=== PATIENT | male | born 1930 | race Caucasian/White ===

== ENCOUNTER 2017-03-20 22:56 | Inpatient (IN) | payer MEDICARE, OTHER ==
[~2017-03-20] VITALS: Ht 182.9 cm; Wt 97.9 kg
[~2017-03-20 22:56] MED LIST: ASPI81TA22 PO; ATOR40TA16 PO; CALC250 PO; CLOP75TA PO; ENOX40IN SQ; FAMO20TA2 PO; HYDR-3288 PO; LISI2.5T3 PO; POLY17S PO; TAMS5CAP PO; THERH PO
[2017-03-20] MEDS: SODIUM CHLOR 0.9% 1000 ML INJ 1,000 ML IV SCH (23:53)
--- NOTE | 2017-03-20 23:53 | HHI.HP ---
HPI Service Critical Care Medicine Primary Care Physician Unknown Admission Diagnosis Diagnosis: Travel History International Travel<30 Days: No Contact w/Intl Traveler <30 Da: No Traveled to Known Affected Are: No History of Present Illness 86-year-old gentleman was a patient at the [facility] where he developed abdominal discomfort and ileus. He had a CT of the abdomen done that showed Large abdominal aortic aneurysm which measures 7.1 cm transverse by 5.0 cm AP by 7.9 cm sagittal. There is contrast within the mural thrombus suggestive of impending rupture. . The patient has known infrarenal 7 cm abdominal aortic aneurysm and apparently had this aneurysm for a while and a surgeon was consulted last month to see the patient in another hospital. At the time it was deemed to be non-leaking. The patient was transferred to SICU and was immediately evaluated by vascular surgeon contact center team lead Dr. Bishop with recommendation of a CTA of the thoracoabdominal aorta for further decisions about treatment plan. Review of Systems Constitutional: DENIES: Diaphoretic episodes, Fatigue, Fever, Weight gain, Weight loss, Chills, Dizziness, Change in appetite, Night Sweats Endocrine: DENIES: Heat/cold intolerance, Polydipsia, Polyuria, Polyphagia Eyes: DENIES: Blurred vision, Diplopia, Eye inflammation, Eye pain, Vision loss , Photosensitivity, Double Vision Ears, nose, mouth, throat: DENIES: Tinnitus, Hearing loss, Vertigo, Nasal discharge, Oral lesions, Throat pain, Hoarseness, Ear Pain, Running Nose, Epistaxis, Sinus Pain, Toothache, Odynophagia Respiratory: DENIES: Apneas, Cough, Snoring, Wheezing, Hemoptysis, Sputum production, Shortness of breath Cardiovascular: DENIES: Chest pain, Palpitations, Syncope, Dyspnea on Exertion , PND, Lower Extremity Edema, Orthopnea, Claudication Gastrointestinal: COMPLAINS OF: Abdominal pain, Nausea, Anorexia, DENIES: Black stools, Bloody stools, Constipation, Diarrhea, Vomiting, Difficulty Swallowing Genitourinary: DENIES: Sexual dysfunction, Urinary frequency, Urinary incontinence, Urgency, Hematuria, Dysuria, Nocturia, Penile Discharge, Testicular Pain, Testicular Swelling Musculoskeletal: DENIES: Joint pain, Muscle aches, Stiffness, Joint Swelling, Back pain, Neck pain Integumentary: DENIES: Abnormal pigmentation, Nail changes, Pruritus, Rash Hematologic/lymphatic: DENIES: Bruising, Lymphadenopathy Immunologic/allergic: DENIES: Eczema, Urticaria Neurologic: DENIES: Abnormal gait, Headache, Localized weakness, Paresthesias, Seizures, Speech Problems, Tremor, Poor Balance Psychiatric: DENIES: Anxiety, Confusion, Mood changes, Depression, Hallucinations, Agitation, Suicidal Ideation, Homicidal Ideation, Delusions Past Family Social History Allergies: Coded Allergies: Sulfa (Sulfonamide Antibiotics) (Verified Allergy, Severe, Hives, 03/19/17) sulfamethoxazole (Verified Allergy, Unknown, 03/19/17) Past Medical History Hypertension Coronary artery disease Dyslipidemia BPH Past Surgical History AAA repair 10 years ago Reported Medications Reported Meds & Active Scripts Active Famotidine 20 Mg Tab 20 Mg PO BID 30 Days Oyster Shell 250 mg + Vit D Tb (Calcium/Vitamin D) 250 Mg Calcium (625 Mg)-125 Unit Tablet 250 Mg PO BID@0900,1700 30 Days Flomax (Tamsulosin HCl) 0.4 Mg Cap 0.4 Mg PO DAILY 30 Days Reported Therems-H (Multivitamin Hematinic Therapeutic) 1 Tab 1 Tab PO DAILY Lisinopril 2.5 Mg Tab 2.5 Mg PO DAILY Clopidogrel (Clopidogrel Bisulfate) 75 Mg Tab 75 Mg PO DAILY Atorvastatin (Atorvastatin Calcium) 40 Mg Tab 40 Mg PO DAILY Aspirin EC Low Dose (Aspirin) 81 Mg Tabec 81 Mg PO DAILY Polyethylene Glycol 3350 Powder (Polyethylene Glycol) 17 Gram Pow 17 Gm PO DAILY Enoxaparin Inj (Enoxaparin Sodium) 40 Mg/0.4 Ml Syr 40 Mg SQ DAILY [place] (Hydrocodone-Acetaminophen) 7.5-325 mg Tab 1 Tab PO Q6H PRN Active Ordered Medications Current Medications Medications (Trade) Dose Ordered Sig/Antione Route PRN Reason Start Time Stop Time Status Last Admin Dose Admin Sodium Chloride 1,000 ml @ 84 mls/hr [id number] IV 03/20/17 23:53 03/20/17 23:53 Sodium Chloride (NS Flush) 2 ml UNSCH PRN IV FLUSH FLUSH AFTER USING IV ACCESS 03/21/17 00:00 Sodium Chloride (NS Flush) 2 ml BID IV FLUSH 03/21/17 09:00 Acetaminophen (Tylenol) 650 mg Q6H PRN PO PAIN 1-10 AND/OR FEVER >101F 03/21/17 00:00 Famotidine (Pepcid Inj) 20 mg Q12HR IV PUSH 03/21/17 09:00 Ondansetron HCl (Zofran Inj) 4 mg Q6H PRN IV PUSH NAUSEA OR VOMITING 03/21/17 00:00 Temazepam (Restoril) 15 mg HS PRN PO INSOMNIA 03/21/17 00:00 Albuterol/ Ipratropium (Duoneb Neb) 1 ampule Q2HR NEB PRN INH WHEEZING 03/21/17 00:00 Miscellaneous Information 1 [id number] XX 03/21/17 00:00 Chlorhexidine Gluconate (Chlorhexidine 2% Cloth) 3 pack Taper DAILY@04 TOP 03/21/17 04:00 03/17/18 03:59 Chlorhexidine Gluconate (Chlorhexidine 2% Cloth) 3 pack UNSCH PRN TOP HYGIENIC CARE 03/21/17 00:00 Senna/Docusate Sodium (Annabel-Colace) 1 tab BID PO 03/21/17 09:00 Magnesium Hydroxide (Milk Of Magnesia Liq) 30 ml Q12H PRN PO Mild constipation 03/21/17 00:00 Sennosides (Senokot) 17.2 mg Q12H PRN PO Moderate constipation 03/21/17 00:00 Bisacodyl (Dulcolax Supp) 10 mg DAILY PRN RECTAL SEVERE CONSITIPATION/ IF NPO 03/21/17 00:00 Lactulose (Lactulose Liq) 30 ml DAILY PRN PO SEVERE CONSITIPATION/ IF PO 03/21/17 00:00 Atorvastatin Calcium (Lipitor) 40 mg DAILY PO 03/21/17 09:00 Calcium/Vitamin D (Oscal-D 250-125) 250 mg BID@0900,1700 PO 03/21/17 09:00 Tamsulosin HCl (Flomax) 0.4 mg DAILY PO 03/21/17 09:00 Lisinopril (Prinivil) 2.5 mg DAILY PO 03/21/17 09:00 Family History No family history significant of early coronary artery disease are or malignancy Social History Currently nonsmoker nondrinker no illicit drug abuse Physical Exam Physical Exam GENERAL: Well-nourished, well-developed patient. Elderly gentleman in no acute distress SKIN: Warm and dry. HEAD: Normocephalic. EYES: No scleral icterus. No injection or drainage. NECK: Supple, trachea midline. No JVD or lymphadenopathy. CARDIOVASCULAR: Regular rate and rhythm without murmurs, gallops, or rubs. RESPIRATORY: Breath sounds equal bilaterally. No accessory muscle use. GASTROINTESTINAL: Abdomen soft, non-tender, nondistended. MUSCULOSKELETAL: No cyanosis, or edema. BACK: Nontender without obvious deformity. NEURO EXAM: GCS: 15 Mental Status: The patient is alert and oriented to person, place, and time with normal speech. Imaging CT abdomen and pelvis 1. Large abdominal aortic aneurysm which measures 7.1 cm transverse by 5.0 cm AP by 7.9 cm sagittal. There is contrast within the mural thrombus suggestive of impending rupture. The findings were called to the floor nurse at 10: 2. 05 PM on 03/20/17. 3. Multiple calcified nonobstructing right renal calculi. 4. Multiple bilateral renal cysts. 5. Tiny bilateral pleural effusions. 6. Mild splenomegaly. 7. Emphysematous blebs within the right lung base. 8. Bibasilar fibrotic scarring. 9. Enlarged prostate. 10. Degenerative changes throughout the thoracolumbar spine. Septic Shock Reassessment Septic shock perfusion: reassessment completed Caprini VTE Risk Assessment Caprini VTE Risk Assessment: Mod/High Risk (score >= 2) VTE Pharm Contraindication: High risk for bleeding Caprini Risk Assessment Model Point Value = 1 Point Value = 2 Point Value = 3 Point Value = 5 Age 41-60 Minor surgery BMI > 25 kg/m2 Swollen legs Varicose veins or History of unexplained or recurrent spontaneous Oral contraceptives or hormone replacement Sepsis (< 1 month) Serious lung disease, including pneumonia (< 1 month) Abnormal pulmonary function Acute myocardial infarction Congestive heart failure (< 1 month) History of inflammatory bowel disease Medical patient at bed rest Age 61-74 Arthroscopic surgery Major open surgery (> 45 min) Laparoscopic surgery (> 45 min) Malignancy Confined to bed (> 72 hours) Immobilizing plaster cast Central venous access Age >= 75 History of VTE Family history of VTE Factor V Leiden Prothrombin [id number] Lupus anticoagulant Anticardiolipin antibodies Elevated serum homocysteine Heparin-induced thrombocytopenia Other congenital or acquired thrombophilia Stroke (< 1 month) Elective arthroplasty Hip, pelvis, or leg fracture Acute spinal cord injury (< 1 month) Prophylaxis Regimen Total Risk Factor Score Risk Level Prophylaxis Regimen 0-1 Low Early ambulation 2 Moderate Order ONE of the following: *Sequential Compression Device (SCD) *Heparin 5000 units SQ BID 3-4 Higher Order ONE of the following medications: *Heparin 5000 units SQ TID *Enoxaparin/Lovenox 40 mg SQ daily (WT < 150 kg, CrCl > 30 mL/min) *Enoxaparin/Lovenox 30 mg SQ daily (WT < 150 kg, CrCl > 10-29 mL/min) *Enoxaparin/Lovenox 30 mg SQ BID (WT < 150 kg, CrCl > 30 mL/min) AND/OR *Sequential Compression Device (SCD) 5 or more Highest Order ONE of the following medications: *Heparin 5000 units SQ TID (Preferred with Epidurals) *Enoxaparin/Lovenox 40 mg SQ daily (WT < 150 kg, CrCl > 30 mL/min) *Enoxaparin/Lovenox 30 mg SQ daily (WT < 150 kg, CrCl > 10-29 mL/min) *Enoxaparin/Lovenox 30 mg SQ BID (WT < 150 kg, CrCl > 30 mL/min) AND *Sequential Compression Device (SCD) Assessment and Plan Assessment and Plan Aortic abdominal aneurysm - Admit to ICU - Aortic angiogram - Further management per vascular surgeon Hypertension - Lisinopril Dyslipidemia - Atorvastatin Coronary artery disease - Hold aspirin and Plavix due to high risk of bleed from AAA - Restart when okay with vascular surgery BPH - Tamsulosin DVT GI prophylaxis - Teds SCDs - No pharmacological DVT prophylaxis due to her risk of bleeding - Pepcid Critical Care: The total critical care time was 35 minutes. Time to perform other separately billable procedures was not included in the critical care time. Terrance Saleem MD Mar 20, 2017 11:53 pm
[2017-03-21] VITALS (13 sets, daily range): BP systolic 93–113; BP diastolic 50–71; PULSE 63–84; RESP 16–23; TEMP 97.3–98.9; O2SAT 92–96
[2017-03-21] MEDS ORDERED: RESP: ALBUTEROL 2.5 MG/IPRATROPIUM 0.5 MG NEB (PRN) INH
[2017-03-21] MEDS ORDERED: ACETAMINOPHEN 325 MG TAB PO PRN
[2017-03-21] MEDS ORDERED: MISCELLANEOUS NURSING INFORMATION XX SCH
[2017-03-21] MEDS ORDERED: ONDANSETRON HCL 4 MG/2 ML VIAL IV PUSH PRN
[2017-03-21] MEDS ORDERED: SENNOSIDES 8.6 MG TAB PO PRN
[2017-03-21] MEDS ORDERED: TEMAZEPAM 15 MG CAP PO PRN
[2017-03-21] MEDS ORDERED: MAGNESIUM HYDROXIDE SUSP 30 ML CUP PO PRN
[2017-03-21] MEDS ORDERED: LACTULOSE SYRUP 20 GM/30 ML CUP PO PRN
[2017-03-21] MEDS ORDERED: CHLORHEXIDINE GLUCONATE 2 % 1 PACK (2 CLOTHS) TOP PRN
[2017-03-21] MEDS ORDERED: SODIUM CHLORIDE 0.9% FLUSH 10 ML FLUSH IV FLUSH PRN
[2017-03-21] MEDS ORDERED: BISACODYL 10 MG SUPP RECTAL PRN
[2017-03-21] MEDS: CHLORHEXIDINE GLUCONATE 2 % 1 PACK (2 CLOTHS) TOP SCH (00:43)
--- NOTE | 2017-03-21 01:07 | PD.CAR.PN ---
CVT Progress Note Subjective/Hospital Course: 86-year-old gentleman with infrarenal 7 cm abdominal aortic aneurysm. Patient apparently had this aneurysm for a while and another surgeon was consulted last month to see the patient in another hospital. At the time it was deemed to be non-leaking At this time I was called to see the patient because the CT scan performed for "ileus", revealed this aneurysm and some blood in the thrombus so question is there about leak Abdomen is soft, hypoactive bowel sounds. No rebound no guarding and pulsatile masses clearly present. No back pain This is not the leaking aneurysm by clinical definitions and based on clinical exam. Patient needs a CTA of the thoracoabdominal aorta and then we'll decide if this can be fixed endovascularly Note Patient and family state that he had open abdominal aortic aneurysm repair 10 years ago at another hospital but looking at this CAT scan I don't see any traces or repair there although he has abdominal scar. Full consult to follow Thanks J Labs: Laboratory Tests Test 03/21/17 00:30 Bre Reeder MD Mar 21, 2017 01:07
[2017-03-21] MEDS ORDERED: SODIUM CHLORID 0.9% 500 ML INJ 500 ML IV ONE (02:00)
[2017-03-21 02:56] LABS: AUTOMATED NEUTROPHIL # 4.8 TH/MM3 (1.8-7.7); BASOPHIL % 0.5 % (0.0-2.0); EOSINOPHIL # 0.3 TH/MM3 (0-0.4); EOSINOPHIL % 3.7 % (0.0-4.0); HEMATOCRIT 23.7 % (39.0-51.0); HEMOGLOBIN 8.2 GM/DL (13.0-17.0); LYMPH % 13.4 % (9.0-44.0); LYMPHOCYTE # 0.9 TH/MM3 (1.0-4.8); MEAN CELL VOLUME 89.9 FL (80.0-100.0); MEAN CORPUSCULAR HEMOGLOBIN 31.1 PG (27.0-34.0); MEAN CORPUSCULAR HGB CONC 34.6 % (32.0-36.0); MEAN PLATELET VOLUME 9.1 FL (7.0-11.0); MONO % 12.1 % (0.0-8.0); MONOCYTE # 0.8 TH/MM3 (0-0.9); NEUT % 70.3 % (16.0-70.0); PLATELET COUNT 138 TH/MM3 (150-450); RED BLOOD COUNT 2.63 MIL/MM3 (4.50-5.90); RED CELL DISTRIBUTION WIDTH 13.6 % (11.6-17.2); WHITE BLOOD COUNT 6.8 TH/MM3 (4.0-11.0)
[2017-03-21 03:02] LABS: INTERNATIONAL NORMALIZED RATIO 1.1 RATIO
[2017-03-21 03:12] LABS: ALBUMIN 1.9 GM/DL (3.4-5.0); ALT (GPT) 74 U/L (12-78); AST (GOT) 74 U/L (15-37); BICARBONATE 29.8 MEQ/L (21.0-32.0); BLOOD UREA NITROGEN 24 MG/DL (7-18); CALCIUM 9.4 MG/DL (8.5-10.1); CHLORIDE 103 MEQ/L (98-107); CREATININE 0.78 MG/DL (0.60-1.30); GLOMERULAR FILTRATION RATE 95 ML/MIN (>89); GLUCOSE,RANDOM 107 MG/DL (74-106); MAGNESIUM 1.8 MG/DL (1.5-2.5); PHOSPHORUS 3.2 MG/DL (2.5-4.9); SODIUM (NA) 139 MEQ/L (136-145)
[2017-03-21 03:14] LABS: ALKALINE PHOSPHATASE 121 U/L (45-117); TOTAL BILIRUBIN ADULT 1.1 MG/DL (0.2-1.0); TOTAL PROTEIN 4.6 GM/DL (6.4-8.2)
--- NOTE | 2017-03-21 06:33 | RADRPT ---
EXAM DATE/TIME: 03/21/2017 05:04 [facility] COMPARISON: No previous studies available for comparison. INDICATIONS : Evaluate for pneumonia, pneumothorax, or communicable disease. Pre-op vascular surgery MEDICAL HISTORY : Cardiovascular disease. Hypertension. SURGICAL HISTORY : AAA repair ENCOUNTER: Initial ACUITY: 1 day PAIN SCORE: 0/10 LOCATION: Bilateral chest FINDINGS: A single view of the chest demonstrates scattered atelectasis and scarring in the lungs. Bullous christians[place] ges on the right and right lung base. No pneumothorax. Heart size within normal limits. Small right p leural effusion. CONCLUSION: 1. No consolidation. Trace right pleural fluid. Underlying parenchymal scarring in the lungs. Bullous changes right lung base. Esvin Santos MD on March 21, 2017 at 6:29 Board Certified Radiologist. This report was verified electronically.
[2017-03-21] MEDS: SODIUM CHLOR 0.9% 1000 ML INJ 1,000 ML IV SCH ×2 (07:44→16:43)
[2017-03-21] MEDS: TAMSULOSIN HCL 0.4 MG CAP PO SCH (09:00)
[2017-03-21] MEDS: LISINOPRIL 5 MG TAB PO SCH (09:00)
[2017-03-21] MEDS: SODIUM CHLORIDE 0.9% FLUSH 10 ML FLUSH IV FLUSH SCH ×2 (09:00→20:05)
[2017-03-21] MEDS ORDERED: IOHEXOL 350 MG/ML 10 ML VIAL (for RAD DIAG) IVCONTRAST ONE (10:15)
--- NOTE | 2017-03-21 10:20 | HHI.CCPN ---
Subjective Remarks/Hospital Course 03/20: 86-year-old gentleman was a patient at the [facility] where he developed abdominal discomfort and ileus. He had a CT of the abdomen done that showed Large abdominal aortic aneurysm which measures 7.1 cm transverse by 5.0 cm AP by 7.9 cm sagittal. There is contrast within the mural thrombus suggestive of impending rupture. . The patient has known infrarenal 7 cm abdominal aortic aneurysm and apparently had this aneurysm for a while and a surgeon was consulted last month to see the patient in another hospital. At the time it was deemed to be non-leaking. The patient was transferred to SICU and was immediately evaluated by vascular surgeon area loss prevention manager Dr. Bishop with recommendation of a CTA of the thoracoabdominal aorta for further decisions about treatment plan. 03/21: Resting comfortably in bed. Denies any chest pain or shortness of breath. Complains of left ankle pain. Denies any abdominal pain. Objective Vital Signs Date Time Temp Pulse Resp B/P (MAP) Pulse Ox O2 Delivery O2 Flow Rate FiO2 03/21/17 08:00 63 03/21/17 07:40 95 21 03/21/17 04:00 98.9 20 99/51 (67) Intake and Output 03/21/17 03/21/17 03/22/17 08:00 16:00 00:00 Intake Total 1500 ml Output Total 800 ml Balance 700 ml Result Diagram: 03/21/1722603/21/[address] abdomen and pelvis 1. Large abdominal aortic aneurysm which measures 7.1 cm transverse by 5.0 cm AP by 7.9 cm sagittal. There is contrast within the mural thrombus suggestive of impending rupture. The findings were called to the floor nurse at 10: 2. 05 PM on 03/20/17. 3. Multiple calcified nonobstructing right renal calculi. 4. Multiple bilateral renal cysts. 5. Tiny bilateral pleural effusions. 6. Mild splenomegaly. 7. Emphysematous blebs within the right lung base. 8. Bibasilar fibrotic scarring. 9. Enlarged prostate. 10. Degenerative changes throughout the thoracolumbar spine. Objective Remarks GENERAL: Well-nourished, well-developed patient. Elderly gentleman in no acute distress SKIN: Warm and dry. HEAD: Normocephalic. EYES: No scleral icterus. No injection or drainage. NECK: Supple, trachea midline. No JVD or lymphadenopathy. CARDIOVASCULAR: Regular rate and rhythm without murmurs, gallops, or rubs. RESPIRATORY: Breath sounds equal bilaterally. No accessory muscle use. GASTROINTESTINAL: Abdomen soft, non-tender, nondistended. MUSCULOSKELETAL: No cyanosis, or edema. BACK: Nontender without obvious deformity. NEURO EXAM: GCS: 15 Mental Status: The patient is alert and oriented to person, place, and time with normal speech. A/P Assessment and Plan Aortic abdominal aneurysm - Admit to ICU - CTA abd/pelvis to evaluate aortic aneurism - Further management per vascular surgeon Hypertension - Lisinopril Dyslipidemia - Atorvastatin Coronary artery disease - Hold aspirin and Plavix due to high risk of bleed from AAA - Restart when okay with vascular surgery BPH - Tamsulosin DVT GI prophylaxis - Teds SCDs - No pharmacological DVT prophylaxis due to her risk of bleeding - Pepcid Percocet prn for ankle pain which is longstanding. D/W Dr. Rivera. Octavio Bhatt MD Mar 21, 2017 10:20
--- NOTE | 2017-03-21 11:19 | RADRPT ---
EXAM DATE/TIME: 03/21/2017 09:38 This report includes an Addendum and supersedes previous reports for this exam. [facility] COMPARISON: CT ABDOMEN & PELVIS W CONTRAST, March 20, 2017, 21:36. INDICATIONS : Evaluate for surgery. IV CONTRAST: 98 cc Omnipaque 350 (iohexol) IV RADIATION DOSE: 9.18 CTDIvol (mGy) MEDICAL HISTORY : Cardiovascular disease. Aneurysm, abdominal. SURGICAL HISTORY : Appendectomy. Stents ENCOUNTER: Initial ACUITY: 1 day PAIN SCALE: 0/10 LOCATION: Abdomen TECHNIQUE: Volumetric scanning was performed using a multi-row detector CT scanner. The data was post processed with a variety of visualization algorithms including full volume maximum intensity projection, multi -planar sliding thin slab reformation, curved planar reformation, and surface rendering techniques. Using automated exposure control and adjustment of the mA and/or kV according to patient size, radiat ion dose was kept as low as reasonably achievable to obtain optimal diagnostic quality images. DICOM format image data is available electronically for review and comparison. FINDINGS: Thoracic/abdominal aorta: Again seen is a fusiform aneurysm of the infrarenal aorta. The aneurysm measures 7.5 x 5.6 cm. It is somewhat eccentric in nature. There is high attenuation material associated with the mural thrombus w ithin this more cephalad extent. I have no noncontrast studies to differentiate calcium from contrast opacification. No stranding of the surrounding retroperitoneal fat observed. The aneurysm tapers pro ximal to the aortic bifurcation. The left common iliac artery measures 18 mm as does the right. There is a 2.3 cm neck involving the infrarenal aorta with the diameter of the aorta at the level of the l eft renal artery origin measuring 3.5 x 2.5 cm. Although there is mild calcification associated with the wall there is no significant irregularity of the wall to prevent landing of a stent graft. Common femoral arteries measure 9 mm in diameter. In-Flow vessels are patent. Internal iliac arteries are p atent bilaterally. The celiac, SMA, and renal arteries are patent. MC origin is occluded. Thoracic a berta is normal in caliber and course. Heart and mediastinum: Significant coronary artery atherosclerotic calcifications are noted. The heart is normal in size. No pericardial effusion. Aorta and pulmonary arteries are normal in caliber. No adenopathy. Homogeneous ly calcified lymph node within the left hilum. Lung parenchyma: Severe emphysematous changes with several large bulla involving the right lower lobe. Chronic interst itial changes scattered throughout. Selective bronchiectasis bilaterally. Small bilateral posterior l ayering pleural effusions. The right is larger than the left. There is associated passive atelectasis . Other structures: A degenerative lumbar spine. Abdominal viscera dictated in the prior CT of the abdomen and pelvis rep ort. CONCLUSION: 1. 7.5 x 5.6 cm fusiform eccentric infrarenal abdominal aortic aneurysm. This would be amenable to en dovascular repair if clinically warranted. 2. Significant coronary artery atherosclerotic calcifications. 3. Small bilateral pleural effusions with passive atelectasis. 4. Bullous emphysematous changes. Flash Cao Jr., MD on March 21, 2017 at 10:39 Board Certified Radiologist. This report was verified electronically. ADDENDUM: Upon further review of the study there has been prior tube graft placement within the infrarenal aort a. There is an atypical appearance to the [place] aneurysm sac which is typically collapsed around the tube graft. In this patient there is thrombus filling the [place] sac. This could represent prior rem ote hemorrhage into the [place] sac. An unenhanced CT is planned to evaluate the thrombus within the n ative sac to differentiate contrast-enhancement from what is likely felt to represent calcium. Flash Cao Jr., MD on March 21, 2017 at 15:32 Board Certified Radiologist. This report was verified electronically.
[2017-03-21] MEDS: FAMOTIDINE 20 MG/2 ML VIAL IV PUSH SCH ×2 (13:08→20:04)
--- NOTE | 2017-03-21 13:55 | EKG ---
Date Performed: 03/21/2017 Time Performed: 00:33:42 PTAGE: 86 years EKG: Sinus rhythm . Right bundle branch block Abnormal ECG NO PREVIOUS TRACING DOCTOR: Raffi Pike Interpretating Date/Time 03/21/2017 13:53:36
--- NOTE | 2017-03-21 16:21 | PD.CAR.PN ---
CVT Progress Note Subjective/Hospital Course: 86-year-old gentleman with infrarenal 7 cm abdominal aortic aneurysm. Patient apparently had this aneurysm for a while and another surgeon was consulted last month to see the patient in another hospital. At the time it was deemed to be non-leaking At this time I was called to see the patient because the CT scan performed for "ileus", revealed this aneurysm and some blood in the thrombus so question is there about leak Abdomen is soft, hypoactive bowel sounds. No rebound no guarding and pulsatile masses clearly present. No back pain This is not the leaking aneurysm by clinical definitions and based on clinical exam. Patient needs a CTA of the thoracoabdominal aorta and then we'll decide if this can be fixed endovascularly Note Patient and family state that he had open abdominal aortic aneurysm repair 10 years ago at another hospital but looking at this CAT scan I don't see any traces or repair there although he has abdominal scar. 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 With must that happened is that open repair was performed and then leaked into the sac and this sealed off since, probably many years ago Therefore sac looks way larger than it should be foot were wrapped complete around the graft and filled with old blood which contained some contrast Right now this is fine and patient doesn't need any surgery for graft is intact in position and excluded from the rest of the aneurysm sac Patient can return to rehabilitation any time Objective: Vital Signs Date Time Temp Pulse Resp B/P (MAP) Pulse Ox O2 Delivery O2 Flow Rate FiO2 03/21/17 16:00 98.5 84 22 113/56 (75) 92 03/21/17 16:00 82 03/21/17 14:00 69 03/21/17 12:00 68 03/21/17 12:00 98.4 68 16 93/50 (64) 93 03/21/17 10:00 63 03/21/17 08:00 63 03/21/17 08:00 98.0 76 23 107/71 (83) 92 03/21/17 07:40 95 21 03/21/17 07:00 64 03/21/17 06:00 65 03/21/17 04:00 65 03/21/17 04:00 98.9 65 20 99/51 (67) 95 03/21/17 03:13 96 03/21/17 02:00 66 03/21/17 00:00 97.9 66 22 96/50 (65) 95 03/21/17 00:00 66 Result Diagram: 03/21/17 0227 03/21/17 0227 Bre Reeder MD Mar 21, 2017 16:21
[2017-03-21] MEDS: CALCIUM/VITAMIN D 250 MG/125 U TAB PO SCH ×2 (17:00→17:31)
[2017-03-21] MEDS: ATORVASTATIN 40 MG TAB PO SCH (17:31)
[2017-03-21] MEDS: DOCUSATE SODIUM 50 MG/SENNA 8.6 MG TAB PO SCH (20:03)
--- NOTE | 2017-03-21 20:37 | MB ---
cc: BRE ZAPATA MD DATE OF CONSULTATION 03/20/2017 REASON FOR CONSULTATION Pending rupture abdominal otic aneurysm, abdominal pain, coronary artery disease and chronic obstructive pulmonary disease. HISTORY OF PRESENT ILLNESS This 86-year-old pleasant gentleman was in [facility] for unrelated reason. She developed some abdominal pain and somebody ordered a CAT scan. CT scan of abdomen and pelvis shows a large abdominal aortic aneurysm measuring about 7.2 cm and suggestive of impending rupture according to the read. The patient was then transferred to the ICU on this side and I was consulted to see him for the same. This is how this story starts. PAST MEDICAL HISTORY 1. Hypertension 2. Coronary artery disease, 3. Prostatic hypertrophy 4. Known abdominal aortic aneurysm PAST SURGICAL HISTORY Open abdominal aortic aneurysm repair MEDICATIONS Can be found on the record including Plavix. SOCIAL HISTORY The patient does smoke and drink. PHYSICAL EXAMINATION GENERAL: He is awake and alert. Examination reveals a pleasant 86 year old gentleman awake, alert, oriented. HEENT: Normocephalic. No trauma to the head. Pupils equally reactive. Extraocular muscles intact. NECK: Supple. Bilateral carotid pulses. No bruits. CHEST: Clear bilateral breath sounds decreased over both lung bases consistent with moderate degree of emphysema. HEART: Regular rhythm. ABDOMEN: Soft. Active bowel sounds. No rebound or guarding. No masses. Large abdominal mass is indeed palpable in the abdomen and the epigastrium. EXTREMITIES: The patient has good femoral, popliteal, dorsalis pedis, posterior tibial pulses. No signs of acute vascular deficit. BACK: Normal. IMPRESSION I reviewed laboratory and diagnostic procedures. I am dictating this consult on March 21 when I have more data available. Since the patient's arrival to ICU, it is noted that he has a midline scar from previous surgery and groin scars, so question arose what was actually done to this patient when he had an abdominal aortic aneurysm repaired and now it shows "a pending rupture". CT angiogram was performed of the thoracoabdominal aorta. This indeed reveals blood flow through the central portion of the aneurysm sac and freely into the legs. After discussing this at length with radiology, we went back on x-rays and carefully looked over the films. This is a very unusual situation. This patient indeed did have abdominal aortic aneurysm open repair with some sort of probably very thin Todd material that is very hard to see on the x-ray, but the fact that the central canal of the aneurysm sac is so smooth indicates there is something around there. On the other hand, old aneurysm sac is not wrapped around the graft as normally would be but it is very large and filled with old clot including some contrast in it. What probably happened in retrospect, the patient bled from this aortic aneurysm probably proximal repair, filled up the sac with a blood and some contrast and then this congealed and there it is sitting right now. That is why it looks like a pending rupture of a virgin aneurysm. In summary, the patient had a successful open abdominal aortic aneurysm repaired nine years ago. His sac is filled with old congealed blood and some contrast which gives spurious impression of rupture and, therefore, the patient does not need anything done. He can go back to the rehab and we just have to remember so somebody else does not panic in the future again. I thank you much for referral. Critical care time 40 minutes. Bre HENAO /4:32 PM /8:19 PM
[2017-03-21] MEDS: oxyCODONE/ACETAMINOPHEN 7.5 MG/325 MG TAB PO PRN (21:57)
[2017-03-21] MEDS ORDERED: ALUMINUM/MAGNESIUM/SIMETH 30 ML CUP PO PRN (23:45)
[2017-03-22] VITALS: BP 116/51; PULSE 69; RESP 22; TEMP 97.9; O2SAT 95
[2017-03-22 04:00] VITALS: BP 109/56; PULSE 68; RESP 23; TEMP 98.7; O2SAT 97
[2017-03-22] MEDS: CHLORHEXIDINE GLUCONATE 2 % 1 PACK (2 CLOTHS) TOP SCH ×2 (04:00→21:51)
[2017-03-22 08:00] VITALS: BP 119/56; PULSE 66; PULSE 69; RESP 23; TEMP 97; O2SAT 95
[2017-03-22] MEDS: ATORVASTATIN 40 MG TAB PO SCH (09:30)
[2017-03-22] MEDS: TAMSULOSIN HCL 0.4 MG CAP PO SCH (09:30)
[2017-03-22] MEDS: DOCUSATE SODIUM 50 MG/SENNA 8.6 MG TAB PO SCH ×2 (09:30→21:51)
[2017-03-22] MEDS: FAMOTIDINE 20 MG/2 ML VIAL IV PUSH SCH ×2 (09:31→21:50)
[2017-03-22] MEDS: SODIUM CHLORIDE 0.9% FLUSH 10 ML FLUSH IV FLUSH SCH ×2 (09:31→21:50)
[2017-03-22] MEDS: LISINOPRIL 5 MG TAB PO SCH (09:31)
[2017-03-22] MEDS: CALCIUM/VITAMIN D 250 MG/125 U TAB PO SCH ×2 (10:35→17:14)
[2017-03-22] MEDS ORDERED: LACTULOSE SYRUP 20 GM/30 ML CUP PO ONE (11:30)
[2017-03-22] MEDS ORDERED: FUROSEMIDE 40 MG/4 ML VIAL IV PUSH ONE (11:45)
[2017-03-22 12:00] VITALS: BP 110/58; PULSE 85; RESP 23; TEMP 97.5
--- NOTE | 2017-03-22 12:10 | HHI.PR ---
Subjective Remarks Patient reports abdominal discomfort, pretty much resolved. He is experiencing hematuria this morning. He has a Malik catheter secondary to urinary retention. He is concerned about constipation. Objective Vitals Vital Signs Date Time Temp Pulse Resp B/P (MAP) Pulse Ox O2 Delivery O2 Flow Rate FiO2 03/22/17 08:00 69 03/22/17 08:00 97.0 66 23 119/56 (77) 95 03/22/17 04:00 98.7 68 23 109/56 (73) 97 03/22/17 00:00 97.9 69 22 116/51 (72) 95 03/21/17 20:00 97.3 76 19 111/55 (73) 92 03/21/17 20:00 76 03/21/17 16:00 98.5 84 22 113/56 (75) 92 03/21/17 16:00 82 03/21/17 14:00 69 03/21/17 12:00 68 03/21/17 12:00 98.4 68 16 93/50 (64) 93 I/O 03/21/17 03/21/17 03/21/17 03/22/17 03/22/17 03/22/17 07:00 15:00 23:00 07:00 15:00 23:00 Intake Total 500 ml 1000 ml 1630 ml 500 ml Output Total 800 ml 1500 ml 925 ml Balance -300 ml 1000 ml 130 ml -925 ml 500 ml Intake Oral 680 ml IV Total 500 ml 1000 ml 950 ml 500 ml Output Urine Total 800 ml 1500 ml 925 ml Result Diagram: 03/21/177 03/21/17 0227 Objective Remarks GENERAL: This is a well-nourished, well-developed patient, in no apparent distress. CARDIOVASCULAR: Normal rate and regular rhythm without murmurs, gallops, or rubs. RESPIRATORY: Good respiratory efforts. Breath sounds equal and clear to auscultation bilaterally. GASTROINTESTINAL: Abdomen soft, non-tender, non-distended. Normal active bowel sounds MUSCULOSKELETAL: 2+ bilateral lower extremity edema. NEURO: Alert & Oriented x4 to person, place, time, situation. Moves all ext x4 PSYCH: Appropriate mood and affect. A/P Assessment and Plan 86-year-old male with a past medical history significant for coronary artery disease status post TX with angioplasty and stent placement March, and history of abdominal aortic aneurysm repair who was admitted to [facility] with complaints of severe left thigh pain and swelling. 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 Patient was admitted at [facility] for rehabilitation. He complained of abdominal pain and an abdominal CT was concerning for leaking aneurysm. He was immediately transferred to the ICU. Patient currently experiencing hematuria and he also has a left lower extremity DVT. AAA, status post repair 10 years ago - Incidental finding of questionable leakage of abdominal aortic aneurysmal repair as seen on CT of the lumbar spine. No mention of leak on CT of the abdomen. - Patient was evaluated by vascular surgery who extensively reviewed his imaging with radiology and concluded the graft is in place and no surgical intervention indicated at this point. Hematuria/scrotal and penile swelling: - Apparently has had urinary retention since arriving in the hospital and the Malik has been placed. He did receive Lovenox for DVT. - Consult urology for assistance Nonocclusive thrombus left lower extremity - Doppler ultrasound reveals nonocclusive thrombus in the left peroneal vein - Therapeutic Lovenox was started at [facility]. Currently discontinued. - Consult hematology, appreciate recommendations Pathologic fracture left proximal femur status post ORIF with postoperative complication hematoma requiring evacuation Paget's disease Impaired mobility and ADLs Physical deconditioning - Comprehensive rehabilitation per primary team - Pain management with bowel regimen - patient with ileus at admission requiring disimpaction - NWB LLE -Plan to start patient on Fosamax 40mg once daily x 6 mos when he is more stable. CAD Previous TX status post angioplasty and cardiac stent implant 03/2016 - Patient has no cardiac complaints at this time -Hold aspirin and Plavix. Plan to resume once hematuria resolved. Continue Lipitor Hypotensive - Borderline. Continue to hold home dose of Lisinopril for now - Fall precautions - Monitor BP closely Anemia Thrombocytopenia - Secondary to pathologic fracture, postoperative blood loss and postoperative complication of hematoma - Status post transfusion - Continue to monitor CBC closely. LE susan/scrotal swelling: He received IV fluid. - Give a dose of Lasix and monitor response. BPH/urinary retention - Continue home dose of Flomax 0.4 mg daily. Urology consulted as above DVT prophylaxis -SCDs Discharge Planning OK to transfer to floor. Anticipate DC to [facility]. Rosy Mcallister MD Mar 22, 2017 12:10
[2017-03-22] MEDS: oxyCODONE/ACETAMINOPHEN 7.5 MG/325 MG TAB PO PRN (13:51)
[2017-03-22 16:00] VITALS: BP 99/55; PULSE 72; RESP 18; TEMP 96.6; O2SAT 95
--- NOTE | 2017-03-22 19:21 | MB ---
cc: LUIS ALBERTO ADLER M.D. DATE OF CONSULTATION: 03/22/2017. REASON FOR CONSULTATION: Consult requested by Dr. Mcallister, hospitalist, for evaluation of left distal DVT in a patient who started having hematuria after the Lovenox. HISTORY OF PRESENT ILLNESS: Malachi is a pleasant 86-year-old male. He was admitted to [facility] for swelling and pain in the left thigh. He was found to have Paget's disease and a fracture of the left femur. The patient underwent surgery open reduction internal fixation on March 15. Postoperatively the patient had developed bleeding into the left thigh and has a large left thigh hematoma which required evacuation. Postoperative hematoma was considered due to Brilinta medication, which was discontinued. The patient also had a CT scan of the lumbar spine which incidentally showed a large abdominal aortic aneurysm. Dr. Smith, vascular surgeon, evaluated and he did not think that the patient has any aneurysmal leak. Conservative management was recommended. [facility]. The patient had a repeat a CT scan of the abdomen and pelvis and Doppler ultrasound of the left lower extremity. The patient was found to have an abdominal aortic aneurysm. Vascular surgeon was consulted. Dr. Reeder saw him and order the CT angiogram of the aorta which does not show any leaks. No surgery for repair of the aneurysm has been recommended. The patient was found to have left peroneal nonocclusive thrombosis on the Doppler ultrasound. He was started on Lovenox. The patient was noted to have hematuria in the Malik catheter which was placed last night. Lovenox has been stopped and I have been asked to see him for further evaluation. Urology also has been consulted and they have recommended conservative management. The patient denies any previous history of any thrombosis. He has an enlarged prostate. He is having trouble urinating. Last night he had a Malik catheter placed in and the bag was just emptied and there is very minimal urine noted in the back which is normal color. The patient denies any other bleeding episodes. He is complaining of weakness and fatigue. He is complaining of pain in his left leg. The rest of the review of systems is negative. PAST MEDICAL HISTORY: 1. Coronary artery disease. 2. Arthritis. PAST SURGICAL HISTORY: 1. Cardiac catheterization. 2. Coronary stent placement. 3. Abdominal aortic aneurysm repair. 4. 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 5. Appendectomy. 6. Hernia repair. 7. Recently he had open reduction internal fixation for a left femur fracture. 8. He has also had evacuation of a hematoma. ALLERGIES: 1. SULFA. 2. SULFAMETHOXAZOLE. MEDICATIONS: 1. Plavix. 2. Lisinopril. 3. Lipitor. 4. Aspirin. FAMILY HISTORY: No family history of thrombosis. SOCIAL HISTORY: The patient does not smoke cigarettes and does not drink alcohol. PHYSICAL EXAMINATION: GENERAL: This is a well-developed, well-nourished white male in no apparent distress. VITAL SIGNS: Temperature 96.6, heart rate is 72, blood pressure 99/55. HEAD, EYES, EARS, NOSE, THROAT: Pupils equal, round and reactive to light and accommodation. Extraocular muscles intact. Anicteric. No oral lesions are noted. NECK: No lymphadenopathy noted. LUNGS: Clear. No wheezes, rales or rhonchi. HEART: Regular rate and rhythm. ABDOMEN: Abdomen soft and nontender. No hepatosplenomegaly. EXTREMITIES: No pedal edema. NEUROLOGIC: Awake, alert, oriented times three. SKIN: Multiple bruises noted, which appear to be old. ASSESSMENT: 1. Provoked distal left lower extremity DVT which is non- nonocclusive in the left peroneal vein. 2. Hematuria with the Lovenox most likely due to Malik catheter trauma and unlikely that the patient has any coagulopathy from the Lovenox. 3. History of open reduction internal fixation for left femur fracture which was complicated postoperatively with significant hematoma which required evacuation. PLAN: I have reviewed his available records and I have discussed with the patient regarding the issues with the hematuria and left lower extremity distal DVT. We discussed that the distal lower leg DVT carries a very low risk for pulmonary embolism. Given his significant history of hematoma in the left thigh last week and hematuria after the Malik catheter placed and the Lovenox was given, my recommendation is to hold off on any anticoagulation at this time. The patient is already on Plavix for the coronary stent placement. We need to monitor him closely. If his left lower extremity leg becomes swollen, then we will reevaluate the anticoagulation. My recommendation is to repeat the Doppler ultrasound of the left lower extremity on Saturday and to decide what to do after that. We discussed that nature will take care of the blood clot. The anticoagulation Lovenox or heparin or Coumadin will prevent him from getting more blood clots and/or prevent the extension of the clot. One can safely monitor him closely to evaluate for any extension of the clot. He has significant postoperative hematoma in the left thigh which was supposed to be due to Brilinta which he was taking for his heart problem. He is currently on Plavix which is an antiplatelet agent, but not antithrombotic agent. Given that this is a non-occlusive distal lower leg thrombus, it is safe to old off on the anticoagulation as the risks of anticoagulation outweigh the benefits. I have discussed the case with the patient's nurse. Thank you for asking my opinion. MD ANA Macdonald/SUDHAKAR /6:35 PM /6:56 PM
--- NOTE | 2017-03-22 19:59 | PD.CONS ---
HPI Service Urology Consult Requested By Reason for Consult Hematuria; Scrotal swelling Primary Care Physician Unknown Diagnosis: History of Present Illness 86yo male with history of AAA seen in consultation for urinary retention and hematuria. Patient reports he has been having difficulty voiding prior to admit. He reports a weak urinary stream, nocturia, and occasional frequency/ urgency. No history of hematuria. No history of UTIs. No prior surgery for prostate. Unable to void since hospitalization, requiring gaytan catheter. Review of Systems ROS Limitations: Clinical Condition Constitutional: DENIES: Fever Endocrine: DENIES: Heat/cold intolerance Eyes: DENIES: Blurred vision Ears, nose, mouth, throat: DENIES: Hearing loss Respiratory: DENIES: Apneas Cardiovascular: DENIES: Chest pain Gastrointestinal: DENIES: Abdominal pain Genitourinary: COMPLAINS OF: Urinary frequency, Hematuria Musculoskeletal: DENIES: Joint pain Neurologic: DENIES: Headache Psychiatric: DENIES: Anxiety Except as stated in HPI: all other systems reviewed are Neg Past Family Social History Past Medical History Hypertension Coronary artery disease Dyslipidemia BPH Past Surgical History AAA repair 10 years ago Reported Medications Reported Meds & Active Scripts Active Famotidine 20 Mg Tab 20 Mg PO BID 30 Days Oyster Shell 250 mg + Vit D Tb (Calcium/Vitamin D) 250 Mg Calcium (625 Mg)-125 Unit Tablet 250 Mg PO BID@0900,1700 30 Days Flomax (Tamsulosin HCl) 0.4 Mg Cap 0.4 Mg PO DAILY 30 Days Reported Therems-H (Multivitamin Hematinic Therapeutic) 1 Tab 1 Tab PO DAILY Lisinopril 2.5 Mg Tab 2.5 Mg PO DAILY Clopidogrel (Clopidogrel Bisulfate) 75 Mg Tab 75 Mg PO DAILY Atorvastatin (Atorvastatin Calcium) 40 Mg Tab 40 Mg PO DAILY Aspirin EC Low Dose (Aspirin) 81 Mg Tabec 81 Mg PO DAILY Polyethylene Glycol 3350 Powder (Polyethylene Glycol) 17 Gram Pow 17 Gm PO DAILY Enoxaparin Inj (Enoxaparin Sodium) 40 Mg/0.4 Ml Syr 40 Mg SQ DAILY [place] (Hydrocodone-Acetaminophen) 7.5-325 mg Tab 1 Tab PO Q6H PRN Allergies: Coded Allergies: Sulfa (Sulfonamide Antibiotics) (Verified Allergy, Severe, Hives, 03/19/17) sulfamethoxazole (Verified Allergy, Unknown, 03/19/17) Active Ordered Medications Current Medications Medications (Trade) Dose Ordered Sig/Atnione Route Start Time Stop Time Status Last Admin (NS Flush) 2 ml UNSCH PRN IV FLUSH 03/21/17 00:00 (NS Flush) 2 ml BID IV FLUSH 03/21/17 09:00 03/22/17 09:31 (Tylenol) 650 mg Q6H PRN PO 03/21/17 00:00 (Pepcid Inj) 20 mg Q12HR IV PUSH 03/21/17 09:00 03/22/17 09:31 (Zofran Inj) 4 mg Q6H PRN IV PUSH 03/21/17 00:00 (Restoril) 15 mg HS PRN PO 03/21/17 00:00 (Duoneb Neb) 1 ampule Q2HR NEB PRN INH 03/21/17 00:00 Miscellaneous Information 1 Q361D XX 03/21/17 00:00 (Chlorhexidine 2% Cloth) 3 pack Taper DAILY@04 TOP 03/21/17 04:00 03/17/18 03:59 (Chlorhexidine 2% Cloth) 3 pack UNSCH PRN TOP 03/21/17 00:00 (Annabel-Colace) 1 tab BID PO 03/21/17 09:00 03/22/17 09:30 (Milk Of Magnesia Liq) 30 ml Q12H PRN PO 03/21/17 00:00 (Senokot) 17.2 mg Q12H PRN PO 03/21/17 00:00 (Dulcolax Supp) 10 mg DAILY PRN RECTAL 03/21/17 00:00 (Lactulose Liq) 30 ml DAILY PRN PO 03/21/17 00:00 03/21/17 17:31 (Lipitor) 40 mg DAILY PO 03/21/17 09:00 03/22/17 09:30 (Oscal-D 250-125) 250 mg BID@0900,1700 PO 03/21/17 09:00 03/22/17 17:14 (Flomax) 0.4 mg DAILY PO 03/21/17 09:00 03/22/17 09:30 (Prinivil) 2.5 mg DAILY PO 03/21/17 09:00 Future Hold 03/22/17 09:31 (Percocet 7.5-325 Mg) 1 tab Q6H PRN PO 03/21/17 08:15 03/22/17 13:51 (Mag-Al Plus Susp Liq) 30 ml Q6H PRN PO 03/21/17 23:45 03/21/17 23:52 Family History No family history significant of early coronary artery disease are or malignancy Social History Currently nonsmoker nondrinker no illicit drug abuse Physical Exam Vital Signs Date Time Temp Pulse Resp B/P (MAP) Pulse Ox O2 Delivery O2 Flow Rate FiO2 03/22/17 16:00 96.6 72 18 99/55 (70) 95 03/22/17 14:51 18 03/22/17 12:00 97.5 85 23 110/58 (75) 03/22/17 08:00 69 03/22/17 08:00 97.0 66 23 119/56 (77) 95 03/22/17 04:00 98.7 68 23 109/56 (73) 97 03/22/17 00:00 97.9 69 22 116/51 (72) 95 03/21/17 20:00 97.3 76 19 111/55 (73) 92 03/21/17 20:00 76 Physical Exam GENERAL: This is a well-nourished, well-developed patient, in no apparent distress. SKIN: No rashes, ecchymoses or lesions. Cool and dry. HEAD: Atraumatic. Normocephalic.. EYES: Extraocular motions intact. No scleral icterus. No injection or drainage. ENT: Nose without bleeding, purulent drainage. Airway patent. NECK: Trachea midline. No JVD or lymphadenopathy. Supple, nontender, no meningeal signs. CARDIOVASCULAR: Normal Pulse RESPIRATORY: Nonlabored GASTROINTESTINAL: Abdomen soft, non-tender, nondistended. GENITOURINARY: Gaytan catheter in place; draining clear urine; Uncircumcised phallus, Edema scrotum and penis MUSCULOSKELETAL: Extremities without clubbing, cyanosis. NEUROLOGICAL: Awake and alert. Motor and sensory grossly within normal limits. Normal speech. Lab results reviewed: Yes Result Diagram: 03/21/1722603/21/17226 Personally reviewed images: Yes Imaging Last Impressions Chest X-Ray 03/21/17 0000 Signed Impressions: Service Date/Time: March 05:04 - CONCLUSION: 1. No consolidation. Trace right pleural fluid. Underlying parenchymal scarring in the lungs. Bullous changes right lung base. Esvin Santos MD Aorta CTA 03/21/17 0000 Signed Impressions: Service Date/Time: March 09:38 - CONCLUSION: 1. 7.5 x 5.6 cm fusiform eccentric infrarenal abdominal aortic aneurysm. This would be amenable to endovascular repair if clinically warranted. 2. Significant coronary artery atherosclerotic calcifications. 3. Small bilateral pleural effusions with passive atelectasis. 4. Bullous emphysematous changes. Flash Cao Jr., MD ADDENDUM: Upon further review of the study there has been prior tube graft placement within the infrarenal aorta. There is an atypical appearance to the pilot point aneurysm sac which is typically collapsed around the tube graft. In this patient there is thrombus filling the pilot point sac. This could represent prior remote hemorrhage into the pilot point sac. An unenhanced CT is planned to evaluate the thrombus within the pilot point sac to differentiate contrast-enhancement from what is likely felt to represent calcium. Flash Cao Jr., MD Assessment and Plan Problem List: (1) Urinary retention ICD Code: R33.9 - Retention of urine, unspecified Status: Acute (2) Hematuria ICD Code: R31.9 - Hematuria, unspecified Discussed Condition With -Maintain gaytan catheter in place -Continue flomax -Scrotal elevation for edema -Minimal/improving hematuria. No intervention at this time -May discharge with catheter with Urology follow-up in clinic for voiding trial -Please call with questions Ananth Gomes MD Mar 22, 2017 19:59
[2017-03-22 20:00] VITALS: BP 114/58; PULSE 79; RESP 18; TEMP 96.8; O2SAT 94
[2017-03-23] VITALS: BP 107/49; PULSE 75; RESP 18; TEMP 97.1; O2SAT 92
[2017-03-23] MEDS: oxyCODONE/ACETAMINOPHEN 7.5 MG/325 MG TAB PO PRN ×3 (05:22→21:11)
[2017-03-23 07:13] LABS: HEMATOCRIT 24.7 % (39.0-51.0); HEMOGLOBIN 8.4 GM/DL (13.0-17.0); MEAN CELL VOLUME 90.9 FL (80.0-100.0); MEAN CORPUSCULAR HEMOGLOBIN 30.9 PG (27.0-34.0); MEAN PLATELET VOLUME 9.2 FL (7.0-11.0); PLATELET COUNT 166 TH/MM3 (150-450); RED BLOOD COUNT 2.72 MIL/MM3 (4.50-5.90); RED CELL DISTRIBUTION WIDTH 13.4 % (11.6-17.2); WHITE BLOOD COUNT 6.6 TH/MM3 (4.0-11.0)
[2017-03-23 07:24] LABS: BICARBONATE 28.2 MEQ/L (21.0-32.0); CALCIUM 9.2 MG/DL (8.5-10.1); CREATININE 0.78 MG/DL (0.60-1.30)
[2017-03-23 08:00] VITALS: BP 108/47; PULSE 68; RESP 17; TEMP 97.1; O2SAT 93
[2017-03-23] MEDS: SODIUM CHLORIDE 0.9% FLUSH 10 ML FLUSH IV FLUSH SCH ×2 (09:13→21:12)
[2017-03-23] MEDS: ATORVASTATIN 40 MG TAB PO SCH (09:13)
[2017-03-23] MEDS: CALCIUM/VITAMIN D 250 MG/125 U TAB PO SCH ×2 (09:13→17:33)
[2017-03-23] MEDS: DOCUSATE SODIUM 50 MG/SENNA 8.6 MG TAB PO SCH ×2 (09:13→21:10)
[2017-03-23] MEDS: FAMOTIDINE 20 MG/2 ML VIAL IV PUSH SCH ×2 (09:13→21:12)
[2017-03-23] MEDS: TAMSULOSIN HCL 0.4 MG CAP PO SCH (09:13)
--- NOTE | 2017-03-23 09:34 | PD.ONC.PN ---
Subjective Subjective Remarks Afebrile overnight. Patient resting in bed in nad. Urine has cleared, no further hematuria. Objective Data Date Time Temp Pulse Resp B/P (MAP) Pulse Ox O2 Delivery O2 Flow Rate FiO2 03/23/17 08:00 97.1 68 17 108/47 (67) 93 03/23/17 00:00 97.1 75 18 107/49 (68) 92 03/22/17 20:00 96.8 79 18 114/58 (76) 94 03/22/17 16:00 96.6 72 18 99/55 (70) 95 03/22/17 14:51 18 03/22/17 12:00 97.5 85 23 110/58 (75) 03/23/17 03/23/17 03/23/17 07:00 15:00 23:00 Output Total 800 ml Balance -800 ml Result Diagram: 03/23/17 0549 03/23/17 0549 Laboratory Results Laboratory Tests Test 03/23/17 05:49 White Blood Count 6.6 TH/MM3 Red Blood Count 2.72 MIL/MM3 Hemoglobin 8.4 GM/DL Hematocrit 24.7 % Mean Corpuscular Volume 90.9 FL Mean Corpuscular Hemoglobin 30.9 PG Mean Corpuscular Hemoglobin Concent 34.0 % Red Cell Distribution Width 13.4 % Platelet Count 166 TH/MM3 Mean Platelet Volume 9.2 FL Blood Urea Nitrogen 19 MG/DL Creatinine 0.78 MG/DL Random Glucose 95 MG/DL Calcium Level 9.2 MG/DL Sodium Level 138 MEQ/L Potassium Level 4.0 MEQ/L Chloride Level 104 MEQ/L Carbon Dioxide Level 28.2 MEQ/L Anion Gap 6 MEQ/L Estimat Glomerular Filtration Rate 95 ML/MIN Administered Medications Medications (Trade) Dose Ordered Sig/Antione Route PRN Reason Start Time Stop Time Status Last Admin Dose Admin Sodium Chloride (NS Flush) 2 ml BID IV FLUSH 03/21/17 09:00 03/23/17 09:13 Famotidine (Pepcid Inj) 20 mg Q12HR IV PUSH 03/21/17 09:00 03/23/17 09:13 Senna/Docusate Sodium (Annabel-Colace) 1 tab BID PO 03/21/17 09:00 03/23/17 09:13 Lactulose (Lactulose Liq) 30 ml DAILY PRN PO SEVERE CONSITIPATION/ IF PO 03/21/17 00:00 03/21/17 17:31 Atorvastatin Calcium (Lipitor) 40 mg DAILY PO 03/21/17 09:00 03/23/17 09:13 Calcium/Vitamin D (Oscal-D 250-125) 250 mg BID@0900,1700 PO 03/21/17 09:00 03/23/17 09:13 Tamsulosin HCl (Flomax) 0.4 mg DAILY PO 03/21/17 09:00 03/23/17 09:13 Lisinopril (Prinivil) 2.5 mg DAILY PO 03/21/17 09:00 Future Hold 03/22/17 09:31 Oxycodone/ Acetaminophen (Percocet 7.5-325 Mg) 1 tab Q6H PRN PO PAIN SCALE 3 TO 10 03/21/17 08:15 03/23/17 05:22 Al Hydrox/Mg Hydrox/Simethicone (Mag-Al Plus Susp Liq) 30 ml Q6H PRN PO GERD 03/21/17 23:45 03/21/17 23:52 Objective Remarks GENERAL: Pleasant elderly male, lying supine in bed in nad. SKIN: Warm and dry. bandages, left hip, c/d/i. HEAD: Normocephalic. EYES: No injection or drainage. NECK: Supple, trachea midline. CARDIOVASCULAR: Regular rate and rhythm RESPIRATORY: Breath sounds equal bilaterally. No accessory muscle use. GASTROINTESTINAL: Abdomen soft, non-tender, nondistended. EXTREMITIES: No cyanosis NEUROLOGICAL: awake and alert, normal speech Assessment/Plan Problem List: (1) Deep vein thrombosis (DVT) of left lower extremity ICD Codes: I82.402 - Acute embolism and thrombosis of unspecified deep veins of left lower extremity Plan: 2/3: continue to hold ac. monitor LLE DVT with serial ultrasound --conflicting needs: Provoked distal left lower extremity DVT which is non- nonocclusive in the left peroneal vein + Hematuria with the Lovenox most likely due to Malik catheter trauma and unlikely that the patient has any coagulopathy from the Lovenox. -- distal lower leg DVT carries a very low risk for pulmonary embolism. Given his significant history of hematoma in the left thigh last week and hematuria after the Malik catheter placed and the Lovenox was given, recommendation is to hold off on any anticoagulation at this time. (2) History of open reduction and internal fixation (ORIF) procedure ICD Codes: Z98.890 - Other specified postprocedural states Plan: --History of open reduction internal fixation for left femur fracture which was complicated postoperatively with significant hematoma which required evacuation. (3) CAD (coronary artery disease) ICD Codes: I25.10 - Atherosclerotic heart disease of [place] coronary artery without angina pectoris Status: Chronic Plan: --s/p stent placement --on Plavix Assessment 86y/o male with left distal DVT + hematuria while on Lovenox. h/o Coronary artery disease. Arthritis. Attending Statement The exam, history, and the medical decision-making described in the above note were completed with the assistance of the mid-level provider. I reviewed and agree with the findings presented. I attest that I had a [id number] encounter with the patient on the same day, and personally performed and documented my assessment and findings in the medical record. Denies any complaints No more hematuria Repeat Doppler ultrasound on Saturday Hold off on any anticoagulation at this time Problem Qualifiers (1) Deep vein thrombosis (DVT) of left lower extremity: Cristine Su Mar 23, 2017 09:34 Pb Charlton MD Mar 23, 2017 23:26
--- NOTE | 2017-03-23 10:22 | HHI.DS ---
Discharge Summary Admission Date Mar 20, 2017 at 23:29 Discharge Date: Mar 23, 2017 Admitting Diagnosis Concern for Leaking AAA (1) Deep vein thrombosis (DVT) of left lower extremity ICD Code: I82.402 - Acute embolism and thrombosis of unspecified deep veins of left lower extremity (2) Hematuria ICD Code: R31.9 - Hematuria, unspecified (3) Urinary retention ICD Code: R33.9 - Retention of urine, unspecified Status: Acute (4) CAD (coronary artery disease) ICD Code: I25.10 - Atherosclerotic heart disease of [place] coronary artery without angina pectoris Status: Chronic (5) HTN (hypertension) ICD Code: I10 - Essential (primary) hypertension Status: Chronic (6) Scrotal swelling ICD Code: N50.89 - Other specified disorders of the male genital organs Status: Acute (7) Impaired mobility and activities of daily living ICD Code: Z74.09 - Other reduced mobility Status: Acute (8) History of AAA (abdominal aortic aneurysm) repair ICD Code: Z98.890 - Other specified postprocedural states Procedures None Brief History - From Admission HPI from the admitting team. 86-year-old gentleman was a patient at the [facility] where he developed abdominal discomfort and ileus. He had a CT of the abdomen done that showed Large abdominal aortic aneurysm which measures 7.1 cm transverse by 5.0 cm AP by 7.9 cm sagittal. There is contrast within the mural thrombus suggestive of impending rupture. The patient has known infrarenal 7 cm abdominal aortic aneurysm and apparently had this aneurysm for a while and a surgeon was consulted last month to see the patient in another hospital. At the time it was deemed to be non-leaking. The patient was transferred to SICU and was immediately evaluated by vascular surgeon control area operator Dr. Bishop with recommendation of a CTA of the thoracoabdominal aorta for further decisions about treatment plan. CBC/BMP: 03/23/17 0549 03/23/17 0549 Significant Findings Laboratory Tests Test 03/21/17 00:30 03/21/17 02:27 03/23/17 05:49 Red Blood Count 2.63 MIL/MM3 (4.50-5.90) 2.72 MIL/MM3 (4.50-5.90) Hemoglobin 8.2 GM/DL (13.0-17.0) 8.4 GM/DL (13.0-17.0) Hematocrit 23.7 % (39.0-51.0) 24.7 % (39.0-51.0) Platelet Count 138 TH/MM3 (150-450) Neutrophils (%) (Auto) 70.3 % (16.0-70.0) Monocytes (%) (Auto) 12.1 % (0.0-8.0) Lymphocytes # (Auto) 0.9 TH/MM3 (1.0-4.8) Activated Partial Thromboplast Time 23.1 SEC (24.3-30.1) Blood Urea Nitrogen 24 MG/DL (7-18) 19 MG/DL (7-18) Random Glucose 107 MG/DL (74-106) Total Protein 4.6 GM/DL (6.4-8.2) Albumin 1.9 GM/DL (3.4-5.0) Alkaline Phosphatase 121 U/L (45-117) Aspartate Amino Transf (AST/SGOT) 74 U/L (15-37) Total Bilirubin 1.1 MG/DL (0.2-1.0) Imaging Last Impressions Chest X-Ray 03/21/17 0000 Signed Impressions: Service Date/Time: March 05:04 - CONCLUSION: 1. No consolidation. Trace right pleural fluid. Underlying parenchymal scarring in the lungs. Bullous changes right lung base. Esvin Santos MD Aorta CTA 03/21/17 0000 Signed Impressions: Service Date/Time: March 09:38 - CONCLUSION: 1. 7.5 x 5.6 cm fusiform eccentric infrarenal abdominal aortic aneurysm. This would be amenable to endovascular repair if clinically warranted. 2. Significant coronary artery atherosclerotic calcifications. 3. Small bilateral pleural effusions with passive atelectasis. 4. Bullous emphysematous changes. Flash Cao Jr., MD ADDENDUM: Upon further review of the study there has been prior tube graft placement within the infrarenal aorta. There is an atypical appearance to the [place] aneurysm sac which is typically collapsed around the tube graft. In this patient there is thrombus filling the [place] sac. This could represent prior remote hemorrhage into the [place] sac. An unenhanced CT is planned to evaluate the thrombus within the [place] sac to differentiate contrast-enhancement from what is likely felt to represent calcium. Flash Cao Jr., MD PE at Discharge GENERAL: This is a well-nourished, well-developed patient, in no apparent distress. CARDIOVASCULAR: Normal rate and regular rhythm without murmurs, gallops, or rubs. RESPIRATORY: Good respiratory efforts. Breath sounds equal and clear to auscultation bilaterally. GASTROINTESTINAL: Abdomen soft, non-tender, non-distended. Normal active bowel sounds MUSCULOSKELETAL: 2+ bilateral lower extremity edema. NEURO: Alert & Oriented x4 to person, place, time, situation. Moves all ext x4 PSYCH: Appropriate mood and affect. Pt update on day of discharge Patient reports he is feeling much better. Hematuria resolved. Penile swelling better. Still some scrotal swelling. Hospital Course In summary this is an 86-year-old male with a past medical history significant for coronary artery disease status post [place] with angioplasty and stent placement March, and history of abdominal aortic aneurysm repair who was admitted to [facility] with complaints of severe left thigh pain and swelling. 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 Patient was admitted at [place] for rehabilitation. He complained of abdominal pain and an abdominal CT was concerning for leaking aneurysm. He was immediately transferred to the ICU. Patient had hematuria, scrotal swelling. Hematology was consulted given hematuria and LE DVT. Hematology recommend repeat LE US on Saturday and to hold off anticoagulation given its a non occlusive DVT and the risk of bleeding outweigh the risk. Patient was seen by Urology who recommended continuing gaytan and follow up outpatient for voiding trial. Treatment course detailed below: AAA, status post repair 10 years ago - Incidental finding of questionable leakage of abdominal aortic aneurysmal repair as seen on CT of the lumbar spine. No mention of leak on CT of the abdomen. - Patient was evaluated by vascular surgery who extensively reviewed his imaging with radiology and concluded the graft is in place and no surgical intervention indicated at this point. Hematuria/scrotal and penile swelling: - Apparently has had urinary retention since arriving in the hospital and the Gaytan has been placed. He did receive Lovenox for DVT. - Seen by Urology. Continue Gaytan. Voiding trial outpatient Nonocclusive thrombus left lower extremity - Doppler ultrasound reveals nonocclusive thrombus in the left peroneal vein - Therapeutic Lovenox was started at [place]. Discontinued due to hematuria. - Seen by Hematology who recommended holding off on anticoagulation and repeat US on Saturday. Pathologic fracture left proximal femur status post ORIF with postoperative complication hematoma requiring evacuation Paget's disease Impaired mobility and ADLs Physical deconditioning - Comprehensive rehabilitation per primary team - Pain management with bowel regimen - patient with ileus at admission requiring disimpaction - NWB LLE - Plan to start patient on Fosamax 40mg once daily x 6 mos when he is more stable. CAD Previous [place] status post angioplasty and cardiac stent implant 03/2016 - Patient has no cardiac complaints at this time - Resume Plavix and aspirin. Continue Lipitor Hypotensive - Borderline. Continue to hold home dose of Lisinopril for now os BP would not tolerate - Fall precautions - Monitor BP closely Anemia Thrombocytopenia - Secondary to pathologic fracture, postoperative blood loss and postoperative complication of hematoma - Status post transfusion - Stable LE susan/scrotal swelling: He received IV fluid. - Some improvement with Lasix. Recommends a couple more doses of IV Lasix in rehab and monitor response. BPH/urinary retention - Continue home dose of Flomax 0.4 mg daily. Urology consulted as above Pt Condition on Discharge: Good Discharge Disposition: Rehab Inpatient Discharge Time: > 30 minutes Discharge Instructions DIET: Follow Instructions for: Heart Healthy Diet Activities you can perform: Regular-No Restrictions Continued Medications: Aspirin DR (Aspirin EC Low Dose) 81 Mg Tabec 81 MG PO DAILY, TAB Atorvastatin (Atorvastatin) 40 Mg Tab 40 MG PO DAILY for Cholesterol Management, #30 TAB 0 Refills Calcium/Vitamin D (Oyster Shell 250 mg + Vit D Tb) 250 Mg Calcium (625 Mg)-125 Unit Tablet 250 MG PO BID@0900,1700 for 30 Days Clopidogrel (Clopidogrel) 75 Mg Tab 75 MG PO DAILY for Blood Clot Prevention, #30 TAB 0 Refills Famotidine (Famotidine) 20 Mg Tab 20 MG PO BID for 30 Days, TAB Hydrocodone-Acetaminophen ([place]) 7.5-325 mg Tab 1 TAB PO Q6H PRN for PAIN, TAB 0 Refills Multivitamin-Hematinic (Therems-H) 1 Tab 1 TAB PO DAILY for Nutritional Supplement, TAB 0 Refills Polyethylene Glycol 3350 Powder (Polyethylene Glycol 3350 Powder) 17 Gram Pow 17 GM PO DAILY for Constipation, #1 BOTTLE 0 Refills Tamsulosin (Flomax) 0.4 Mg Cap 0.4 MG PO DAILY for 30 Days, CAP Discontinued Medications: Enoxaparin Inj (Enoxaparin Inj) 40 Mg/0.4 Ml Syr 40 MG SQ DAILY for Blood Clot Prevention, SYRINGE 0 Refills Lisinopril (Lisinopril) 2.5 Mg Tab 2.5 MG PO DAILY, #30 TAB 0 Refills Rosy Mcallister MD Mar 23, 2017 10:22
[2017-03-23] MEDS: CLOPIDOGREL 75 MG TAB PO SCH (11:34)
[2017-03-23 12:00] VITALS: BP_SYST 106; BP_SYST 107; BP_DIAS 49; BP_DIAS 52; PULSE 71; PULSE 72; RESP 16; RESP 18; TEMP 96.7; TEMP 96.8; O2SAT 96; O2SAT 97
[2017-03-23 20:00] VITALS: BP 121/54; PULSE 81; RESP 14; TEMP 97.2; O2SAT 91
[2017-03-24] VITALS: BP 108/53; PULSE 70; RESP 14; TEMP 97.4; O2SAT 92
[2017-03-24] MEDS: oxyCODONE/ACETAMINOPHEN 7.5 MG/325 MG TAB PO PRN ×3 (03:44→22:25)
[2017-03-24] MEDS: CHLORHEXIDINE GLUCONATE 2 % 1 PACK (2 CLOTHS) TOP SCH (03:44)
[2017-03-24 08:00] VITALS: BP 112/55; PULSE 76; RESP 18; TEMP 97.7; O2SAT 93
[2017-03-24] MEDS: CALCIUM/VITAMIN D 250 MG/125 U TAB PO SCH ×2 (08:53→15:16)
[2017-03-24] MEDS: ATORVASTATIN 40 MG TAB PO SCH (08:53)
[2017-03-24] MEDS: FAMOTIDINE 20 MG/2 ML VIAL IV PUSH SCH ×2 (08:53→20:31)
[2017-03-24] MEDS: DOCUSATE SODIUM 50 MG/SENNA 8.6 MG TAB PO SCH ×2 (08:53→20:30)
[2017-03-24] MEDS: TAMSULOSIN HCL 0.4 MG CAP PO SCH (08:53)
[2017-03-24] MEDS: CLOPIDOGREL 75 MG TAB PO SCH (08:53)
[2017-03-24] MEDS: SODIUM CHLORIDE 0.9% FLUSH 10 ML FLUSH IV FLUSH SCH ×2 (08:54→20:30)
--- NOTE | 2017-03-24 10:35 | PD.ONC.PN ---
Subjective Subjective Remarks Afebrile overnight. Patient resting in bed in nad. No hematuria. Denies pain. Objective Data Date Time Temp Pulse Resp B/P (MAP) Pulse Ox O2 Delivery O2 Flow Rate FiO2 03/24/17 08:00 97.7 76 18 112/55 (74) 93 03/24/17 00:00 97.4 70 14 108/53 (71) 92 03/23/17 20:00 97.2 81 14 121/54 (76) 91 03/23/17 12:00 96.8 71 16 106/49 (68) 97 03/23/17 12:00 96.7 72 18 107/52 (70) 96 03/24/17 03/24/17 03/24/17 07:00 15:00 23:00 Intake Total 240 ml Output Total 1550 ml Balance -1310 ml Result Diagram: 03/23/17 0549 03/23/17 0549 Administered Medications Medications (Trade) Dose Ordered Sig/Antione Route PRN Reason Start Time Stop Time Status Last Admin Dose Admin Sodium Chloride (NS Flush) 2 ml BID IV FLUSH 03/21/17 09:00 03/24/17 08:54 Famotidine (Pepcid Inj) 20 mg Q12HR IV PUSH 03/21/17 09:00 03/24/17 08:53 Senna/Docusate Sodium (Annabel-Colace) 1 tab BID PO 03/21/17 09:00 03/24/17 08:53 Lactulose (Lactulose Liq) 30 ml DAILY PRN PO SEVERE CONSITIPATION/ IF PO 03/21/17 00:00 03/21/17 17:31 Atorvastatin Calcium (Lipitor) 40 mg DAILY PO 03/21/17 09:00 03/24/17 08:53 Calcium/Vitamin D (Oscal-D 250-125) 250 mg BID@0900,1700 PO 03/21/17 09:00 03/24/17 08:53 Tamsulosin HCl (Flomax) 0.4 mg DAILY PO 03/21/17 09:00 03/24/17 08:53 Lisinopril (Prinivil) 2.5 mg DAILY PO 03/21/17 09:00 Future Hold 03/22/17 09:31 Oxycodone/ Acetaminophen (Percocet 7.5-325 Mg) 1 tab Q6H PRN PO PAIN SCALE 3 TO 10 03/21/17 08:15 03/24/17 03:44 Al Hydrox/Mg Hydrox/Simethicone (Mag-Al Plus Susp Liq) 30 ml Q6H PRN PO GERD 03/21/17 23:45 03/21/17 23:52 Clopidogrel Bisulfate (Plavix) 75 mg DAILY PO 03/23/17 10:15 03/24/17 08:53 Objective Remarks GENERAL: Pleasant male, supine in bed resting. SKIN: Warm and dry. bandages, left hip, c/d/i. HEAD: Normocephalic. EYES: No injection or drainage. NECK: Supple, trachea midline. CARDIOVASCULAR: +S1/S2 RESPIRATORY: Breath sounds equal bilaterally. No accessory muscle use. GASTROINTESTINAL: Abdomen soft, non-tender, nondistended. EXTREMITIES: No cyanosis. NEUROLOGICAL: awake, alert. normal speech Assessment/Plan Problem List: (1) Deep vein thrombosis (DVT) of left lower extremity ICD Codes: I82.402 - Acute embolism and thrombosis of unspecified deep veins of left lower extremity Plan: 03/24: check LLE ultrasound tomorrow. monitor for bleeding. --conflicting needs: Provoked distal left lower extremity DVT which is non- nonocclusive in the left peroneal vein + Hematuria with the Lovenox most likely due to Malik catheter trauma and unlikely that the patient has any coagulopathy from the Lovenox. -- distal lower leg DVT carries a very low risk for pulmonary embolism. Given his significant history of hematoma in the left thigh last week and hematuria after the Malik catheter placed and the Lovenox was given, recommendation is to hold off on any anticoagulation at this time. (2) History of open reduction and internal fixation (ORIF) procedure ICD Codes: Z98.890 - Other specified postprocedural states Plan: --History of open reduction internal fixation for left femur fracture which was complicated postoperatively with significant hematoma which required evacuation. (3) CAD (coronary artery disease) ICD Codes: I25.10 - Atherosclerotic heart disease of [place] coronary artery without angina pectoris Status: Chronic Plan: --s/p stent placement --on Plavix Assessment 86y/o male with left distal DVT + hematuria while on Lovenox. h/o Coronary artery disease. Arthritis. Attending Statement The exam, history, and the medical decision-making described in the above note were completed with the assistance of the mid-level provider. I reviewed and agree with the findings presented. I attest that I had a [id number] encounter with the patient on the same day, and personally performed and documented my assessment and findings in the medical record. NO further hematuria. Off of AC continue plavix. Repeat US tomorrow for DVT Problem Qualifiers (1) Deep vein thrombosis (DVT) of left lower extremity: Cristine Su Mar 24, 2017 10:35 Pb Charlton MD Mar 24, 2017 15:29
--- NOTE | 2017-03-24 11:21 | HHI.PR ---
Subjective Remarks Patient discharged to [facility] yesterday. Note that available. See discharge summary for details. He has no complaints today. Objective Vitals Vital Signs Date Time Temp Pulse Resp B/P (MAP) Pulse Ox O2 Delivery O2 Flow Rate FiO2 03/24/17 08:00 97.7 76 18 112/55 (74) 93 03/24/17 00:00 97.4 70 14 108/53 (71) 92 03/23/17 20:00 97.2 81 14 121/54 (76) 91 03/23/17 12:00 96.8 71 16 106/49 (68) 97 03/23/17 12:00 96.7 72 18 107/52 (70) 96 I/O 03/23/17 03/23/17 03/23/17 03/24/17 03/24/17 03/24/17 07:00 15:00 23:00 07:00 15:00 23:00 Intake Total 690 ml 240 ml Output Total 800 ml 1050 ml 1550 ml Balance -800 ml -360 ml -1310 ml Intake Oral 690 ml 240 ml Output Urine Total 800 ml 1050 ml 1550 ml # Bowel Movements 1 0 0 Result Diagram: 03/23/17 0549 03/23/17 0549 Objective Remarks GENERAL: This is a well-nourished, well-developed patient, in no apparent distress. CARDIOVASCULAR: Normal rate and regular rhythm without murmurs, gallops, or rubs. RESPIRATORY: Good respiratory efforts. Breath sounds equal and clear to auscultation bilaterally. GASTROINTESTINAL: Abdomen soft, non-tender, non-distended. Normal active bowel sounds MUSCULOSKELETAL: 2+ bilateral lower extremity edema. NEURO: Alert & Oriented x4 to person, place, time, situation. Moves all ext x4 PSYCH: Appropriate mood and affect. Procedures None A/P Problem List: (1) Deep vein thrombosis (DVT) of left lower extremity ICD Code: I82.402 - Acute embolism and thrombosis of unspecified deep veins of left lower extremity (2) Hematuria ICD Code: R31.9 - Hematuria, unspecified (3) Urinary retention ICD Code: R33.9 - Retention of urine, unspecified Status: Acute (4) CAD (coronary artery disease) ICD Code: I25.10 - Atherosclerotic heart disease of [place] coronary artery without angina pectoris Status: Chronic (5) HTN (hypertension) ICD Code: I10 - Essential (primary) hypertension Status: Chronic (6) Scrotal swelling ICD Code: N50.89 - Other specified disorders of the male genital organs Status: Acute (7) Impaired mobility and activities of daily living ICD Code: Z74.09 - Other reduced mobility Status: Acute (8) History of AAA (abdominal aortic aneurysm) repair ICD Code: Z98.890 - Other specified postprocedural states Assessment and Plan In summary this is an 86-year-old male with a past medical history significant for coronary artery disease status post [place] with angioplasty and stent placement March, and history of abdominal aortic aneurysm repair who was admitted to [facility] with complaints of severe left thigh pain and swelling. 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 Patient was admitted at [facility] for rehabilitation. He complained of abdominal pain and an abdominal CT was concerning for leaking aneurysm. He was immediately transferred to the ICU. Patient had hematuria, scrotal swelling. Hematology was consulted given hematuria and LE DVT. Hematology recommend repeat LE US on Saturday and to hold off anticoagulation given its a non occlusive DVT and the risk of bleeding outweigh the risk. Patient was seen by Urology who recommended continuing gaytan and follow up outpatient for voiding trial. Treatment course detailed below: AAA, status post repair 10 years ago - Incidental finding of questionable leakage of abdominal aortic aneurysmal repair as seen on CT of the lumbar spine. No mention of leak on CT of the abdomen. - Patient was evaluated by vascular surgery who extensively reviewed his imaging with radiology and concluded the graft is in place and no surgical intervention indicated at this point. Hematuria/scrotal and penile swelling: - Apparently has had urinary retention since arriving in the hospital and the Gaytan has been placed. He did receive Lovenox for DVT. - Seen by Urology. Continue Gaytan. Voiding trial outpatient Nonocclusive thrombus left lower extremity - Doppler ultrasound reveals nonocclusive thrombus in the left peroneal vein - Therapeutic Lovenox was started at [facility]. Discontinued due to hematuria. - Seen by Hematology who recommended holding off on anticoagulation and repeat US on Saturday. Pathologic fracture left proximal femur status post ORIF with postoperative complication hematoma requiring evacuation Paget's disease Impaired mobility and ADLs Physical deconditioning - Comprehensive rehabilitation per primary team - Pain management with bowel regimen - patient with ileus at admission requiring disimpaction - NWB LLE - Plan to start patient on Fosamax 40mg once daily x 6 mos in rehab. CAD Previous [place] status post angioplasty and cardiac stent implant 03/2016 - Patient has no cardiac complaints at this time - Resume Plavix and aspirin. Continue Lipitor Hypotensive - Borderline. Continue to hold home dose of Lisinopril for now os BP would not tolerate - Fall precautions - Monitor BP closely Anemia Thrombocytopenia - Secondary to pathologic fracture, postoperative blood loss and postoperative complication of hematoma - Status post transfusion - Stable LE susan/scrotal swelling: He received IV fluid. - Some improvement with Lasix. Recommends a couple more doses of IV Lasix in rehab and monitor response. BPH/urinary retention - Continue home dose of Flomax 0.4 mg daily. Urology consulted as above Discharge Planning DC to [facility] when a bed becomes available. Problem Qualifiers (1) Deep vein thrombosis (DVT) of left lower extremity: Rosy Mcallister MD Mar 24, 2017 11:21
[2017-03-24 12:00] VITALS: BP 106/52; PULSE 67; RESP 16; TEMP 97.2; O2SAT 93
[2017-03-24] MEDS ORDERED: FUROSEMIDE 40 MG/4 ML VIAL IV PUSH ONE (15:00)
[2017-03-24 16:00] VITALS: BP 105/53; PULSE 71; RESP 18; TEMP 98.9; O2SAT 93
[2017-03-24 20:00] VITALS: BP 105/49; PULSE 71; RESP 15; TEMP 98; O2SAT 93
[2017-03-25] VITALS: BP 110/49; PULSE 72; RESP 15; TEMP 98.1; O2SAT 94
[2017-03-25] MEDS: CHLORHEXIDINE GLUCONATE 2 % 1 PACK (2 CLOTHS) TOP SCH (04:00)
[2017-03-25] MEDS: oxyCODONE/ACETAMINOPHEN 7.5 MG/325 MG TAB PO PRN ×2 (04:18→13:55)
[2017-03-25 08:00] VITALS: BP 107/52; PULSE 67; RESP 18; TEMP 97.7; O2SAT 95
[2017-03-25] MEDS: ATORVASTATIN 40 MG TAB PO SCH (08:27)
[2017-03-25] MEDS: SODIUM CHLORIDE 0.9% FLUSH 10 ML FLUSH IV FLUSH SCH (08:27)
[2017-03-25] MEDS: CLOPIDOGREL 75 MG TAB PO SCH (08:27)
[2017-03-25] MEDS: DOCUSATE SODIUM 50 MG/SENNA 8.6 MG TAB PO SCH (08:27)
[2017-03-25] MEDS: FAMOTIDINE 20 MG/2 ML VIAL IV PUSH SCH (08:27)
[2017-03-25] MEDS: TAMSULOSIN HCL 0.4 MG CAP PO SCH (08:27)
--- NOTE | 2017-03-25 09:16 | RADRPT ---
EXAM DATE/TIME: 03/25/2017 08:12 [place] COMPARISON: No previous studies available for comparison. INDICATIONS : Left leg edema. Prior deep vein thrombosis. MEDICAL HISTORY : Myocardial infarction. Hypercholesterolemia. Arthritis. TIAs. Chest pain. GERD. Hematuria. Prostat e infection. Pagets disease. SURGICAL HISTORY : Abdominal aortic aneurysm repair. Appendectomy. Cardiac stents. Right lung surgery. Prostate surger y. Left femur surgery. Blood transfusions. ENCOUNTER: Subsequent ACUITY: 1 day PAIN SCORE: 5/10 LOCATION: Left leg. TECHNIQUE: Venous ultrasound of the leg was performed from the inguinal ligament to the proximal calf. Real-pedro e, color Doppler and spectral tracing, compression and augmentation techniques were used. FINDINGS: Clot is no longer identified in the peroneal vein. Popliteal vein and deep venous system is patent. CONCLUSION: Patent deep venous system above the knee Clot no longer identified Hayder Wilks MD FACR on March 25, 2017 at 9:12 Board Certified Radiologist. This report was verified electronically.
[2017-03-25] MEDS: CALCIUM/VITAMIN D 250 MG/125 U TAB PO SCH (09:40)
--- NOTE | 2017-03-25 10:48 | ECHRPT ---
Indication: AAA CONCLUSIONS Normal left ventricular size. Wall thickness is normal. The left ventricular systolic function is normal with an estimated ejection fraction in the range of 55-60%. Trace mitral valve regurgitation. Aortic valve sclerosis is present. There is trace tricuspid valve regurgitation. The estimated pulmonary arterial pressure is 30.1 mmHg. BP: 99 / 51 HR: 65 Rhythm: Sinus MEASUREMENTS (Male / Female) Normal Values Technical Quality:Very technically difficult study 2D ECHO LV Diastolic Diameter PLAX 3.9 cm 4.2 - 5.9 / 3.9 - 5.3 cm LV Systolic Diameter PLAX 2.9 cm IVS Diastolic Thickness 0.8 cm 0.6 - 1.0 / 0.6 - 0.9 cm LVPW Diastolic Thickness 0.8 cm 0.6 - 1.0 / 0.6 - 0.9 cm LV Relative Wall Thickness 0.4 RV Internal Dim ED PLAX 2.5 cm LVOT Diameter 2.1 cm Aortic Root Diameter 3.5 cm LA Systolic Diameter LX 3.2 cm 3.0 - 4.0 / 2.7 - 3.8 cm M-MODE AV Cusp Separation MM 2.4 cm DOPPLER AV Peak Velocity 128.0 cm/s AV Peak Gradient 6.6 mmHg AV Mean Gradient 4.0 mmHg AV Velocity Time Integral 25.2 cm LVOT Peak Velocity 80.5 cm/s LVOT Peak Gradient 2.6 mmHg LVOT Velocity Time Integral 18.4 cm AV Area Cont Eq vti 2.5 cm AV Area Cont Eq pk 2.2 cm Mitral E Point Velocity 75.5 cm/s Mitral A Point Velocity 79.5 cm/s Mitral E to A Ratio 0.9 LV E' Lateral Velocity 12.6 cm/s Mitral E to LV E' Lateral Ratio 6.0 LV E' Septal Velocity 6.5 cm/s Mitral E to LV E' Septal Ratio 11.6 TR Peak Velocity 224.0 cm/s TR Peak Gradient 20.1 mmHg Right Atrial Pressure 10.0 mmHg Pulmonary Artery Systolic Pressu 30.1 mmHg Right Ventricular Systolic Press 30.1 mmHg PV Peak Velocity 72.9 cm/s PV Peak Gradient 2.1 mmHg FINDINGS LEFT VENTRICLE Normal left ventricular size. Wall thickness is normal. The left ventricular systolic function is normal with an estimated ejection fraction in the range of 55-60%. RIGHT VENTRICLE Normal right ventricular size and systolic function. LEFT ATRIUM The left atrial size is normal. RIGHT ATRIUM The right atrial size is normal. ATRIAL SEPTUM No atrial level shunt is demonstrated by color flow Doppler interrogation. AORTA The aortic root and proximal ascending aorta are normal in size on limited imaging. MITRAL VALVE Trace mitral valve regurgitation. AORTIC VALVE Aortic valve sclerosis is present. No aortic valve regurgitation. TRICUSPID VALVE There is trace tricuspid valve regurgitation. The estimated pulmonary arterial pressure is 30.1 mmHg. PULMONARY VALVE No pulmonary valve regurgitation or stenosis. VESSELS The inferior vena cava is normal in size. PERICARDIUM No pericardial effusion. Ric Umana MD, FACC (Electronically Signed) Final Date:25 March 2017 10:47
[2017-03-25 12:00] VITALS: BP 140/63; PULSE 76; RESP 18; TEMP 99.8; O2SAT 95
--- NOTE | 2017-03-25 13:16 | HHI.PR ---
Subjective Remarks Patient reports is feeling well. Scrotal swelling continues to improve. Eating well. Awaiting a bed at [facility]. Objective Vitals Vital Signs Date Time Temp Pulse Resp B/P (MAP) Pulse Ox O2 Delivery O2 Flow Rate FiO2 03/25/17 08:00 97.7 67 18 107/52 (70) 95 03/25/17 00:00 98.1 72 15 110/49 (69) 94 03/24/17 20:00 98.0 71 15 105/49 (67) 93 03/24/17 16:00 98.9 71 18 105/53 (70) 93 I/O 03/24/17 03/24/17 03/24/17 03/25/17 03/25/17 03/25/17 07:00 15:00 23:00 07:00 15:00 23:00 Intake Total 240 ml 800 ml 240 ml Output Total 1550 ml 3500 ml 1050 ml Balance -1310 ml -2700 ml -810 ml Intake Oral 240 ml 800 ml 240 ml Output Urine Total 1550 ml 3500 ml 1050 ml # Bowel Movements 0 0 0 Result Diagram: 03/23/17 0549 03/23/17 0549 Objective Remarks GENERAL: This is a well-nourished, well-developed patient, in no apparent distress. CARDIOVASCULAR: Normal rate and regular rhythm without murmurs, gallops, or rubs. RESPIRATORY: Good respiratory efforts. Breath sounds equal and clear to auscultation bilaterally. GASTROINTESTINAL: Abdomen soft, non-tender, non-distended. Normal active bowel sounds MUSCULOSKELETAL: 1+ bilateral lower extremity edema. : Penile swelling have premature resolved. Scrotal swelling significantly improved. NEURO: Alert & Oriented x4 to person, place, time, situation. Moves all ext x4 PSYCH: Appropriate mood and affect. Procedures None A/P Problem List: (1) Deep vein thrombosis (DVT) of left lower extremity ICD Code: I82.402 - Acute embolism and thrombosis of unspecified deep veins of left lower extremity (2) Hematuria ICD Code: R31.9 - Hematuria, unspecified (3) Urinary retention ICD Code: R33.9 - Retention of urine, unspecified Status: Acute (4) CAD (coronary artery disease) ICD Code: I25.10 - Atherosclerotic heart disease of [place] coronary artery without angina pectoris Status: Chronic (5) HTN (hypertension) ICD Code: I10 - Essential (primary) hypertension Status: Chronic (6) Scrotal swelling ICD Code: N50.89 - Other specified disorders of the male genital organs Status: Acute (7) Impaired mobility and activities of daily living ICD Code: Z74.09 - Other reduced mobility Status: Acute (8) History of AAA (abdominal aortic aneurysm) repair ICD Code: Z98.890 - Other specified postprocedural states Assessment and Plan In summary this is an 86-year-old male with a past medical history significant for coronary artery disease status post PA with angioplasty and stent placement March, and history of abdominal aortic aneurysm repair who was admitted to [facility] with complaints of severe left thigh pain and swelling. 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 Patient was admitted at [facility] for rehabilitation. He complained of abdominal pain and an abdominal CT was concerning for leaking aneurysm. He was immediately transferred to the ICU. Patient had hematuria, scrotal swelling. Hematology was consulted given hematuria and LE DVT. Hematology recommend repeat LE US on Saturday and to hold off anticoagulation given its a non occlusive DVT and the risk of bleeding outweigh the risk. Repeat ultrasound showed resolution of the DVT. Patient was seen by Urology who recommended continuing gaytan and follow up outpatient for voiding trial. Treatment course detailed below: AAA, status post repair 10 years ago - Incidental finding of questionable leakage of abdominal aortic aneurysmal repair as seen on CT of the lumbar spine. No mention of leak on CT of the abdomen. - Patient was evaluated by vascular surgery who extensively reviewed his imaging with radiology and concluded the graft is in place and no surgical intervention indicated at this point. Hematuria/scrotal and penile swelling: Hematuria resolved - Apparently has had urinary retention since arriving in the hospital and the Gaytan has been placed. He did receive Lovenox for DVT. - Seen by Urology. Continue Gaytan. Voiding trial outpatient - Penile and scrotal swelling have significantly improved with Lasix. Give Oral Lasix for another 5 days and monitor response. Nonocclusive thrombus left lower extremity - Doppler ultrasound reveals nonocclusive thrombus in the left peroneal vein - Therapeutic Lovenox was started at [facility]. Discontinued due to hematuria. - Seen by Hematology who recommended holding off on anticoagulation and repeat US. - Repeat ultrasound was negative for DVT. Pathologic fracture left proximal femur status post ORIF with postoperative complication hematoma requiring evacuation Paget's disease Impaired mobility and ADLs Physical deconditioning - Comprehensive rehabilitation per primary team - Pain management with bowel regimen - patient with ileus at admission requiring disimpaction - NWB LLE - Start patient on Fosamax 40mg once daily x 6 mos in rehab. Outpatient follow-up advised. CAD Previous PA status post angioplasty and cardiac stent implant 03/2016 - Patient has no cardiac complaints at this time - Resume Plavix and aspirin. Continue Lipitor Hypotensive - Borderline. Continue to hold home dose of Lisinopril for now as BP would not tolerate - Fall precautions - Monitor BP closely Anemia Thrombocytopenia - Secondary to pathologic fracture, postoperative blood loss and postoperative complication of hematoma - Status post transfusion - Stable LE susan/scrotal swelling: He received IV fluid. -Much improved. Transition to oral Lasix. Continue to monitor response. LVEF preserved. He may not need fdc Lasix. BPH/urinary retention - Continue home dose of Flomax 0.4 mg daily. Urology followed the patient as above. Recommend continuing Gaytan catheter and outpatient voiding trial. Discharge Planning DC to [facility] when a bed becomes available. Problem Qualifiers (1) Deep vein thrombosis (DVT) of left lower extremity: Rosy Mcallister MD Mar 25, 2017 13:16
[2017-03-25] MEDS ORDERED: FURO1TAB60 PO (13:17)
[2017-03-25] MEDS ORDERED: FOSA70TA PO (13:17)
--- NOTE | 2017-03-25 14:28 | PD.ONC.PN ---
Subjective Subjective Remarks LATE ENTRY pt seen around 12:30 No c/o wants to go to rehab Family at bedside Objective Data Date Time Temp Pulse Resp B/P (MAP) Pulse Ox O2 Delivery O2 Flow Rate FiO2 03/25/17 12:00 99.8 76 18 140/63 (88) 95 03/25/17 08:00 97.7 67 18 107/52 (70) 95 03/25/17 00:00 98.1 72 15 110/49 (69) 94 03/24/17 20:00 98.0 71 15 105/49 (67) 93 03/24/17 16:00 98.9 71 18 105/53 (70) 93 03/25/17 03/25/17 03/25/17 07:00 15:00 23:00 Intake Total 240 ml Output Total 1050 ml Balance -810 ml Result Diagram: 03/23/17 0549 03/23/17 0549 Imaging Studies Last 24 hours Impressions Lower Extremity Ultrasound 03/25/17 0600 Signed Impressions: Service Date/Time: Saturday, March 25, 2017 08:12 - CONCLUSION: Patent deep venous system above the knee Clot no longer identified Hayder Wilks MD FACR Objective Remarks GENERAL: Well-nourished, well-developed patient. SKIN: Warm and dry. HEAD: Normocephalic. EYES: No scleral icterus. No injection or drainage. NECK: Supple, trachea midline. No JVD or lymphadenopathy. LYMPHATIC: No adenopathy. CARDIOVASCULAR: Regular rate and rhythm without murmurs. RESPIRATORY: Breath sounds equal bilaterally. No accessory muscle use. GASTROINTESTINAL: Abdomen soft, non-tender, nondistended. EXTREMITIES: No cyanosis, or edema. MUSCULOSKELETAL: Adequate muscle tone. NEUROLOGICAL: No obvious focal deficit. Awake, alert, and oriented x3. Assessment/Plan Problem List: (1) Deep vein thrombosis (DVT) of left lower extremity ICD Codes: I82.402 - Acute embolism and thrombosis of unspecified deep veins of left lower extremity Status: Resolved Plan: 2 Repeat Doppler US = No more DVT. Pt does not need AC D/W Pt and family. Ok to d/c to rehab Sign off available prn. 2/4: check LLE ultrasound tomorrow. monitor for bleeding. --conflicting needs: Provoked distal left lower extremity DVT which is non- nonocclusive in the left peroneal vein + Hematuria with the Lovenox most likely due to Malik catheter trauma and unlikely that the patient has any coagulopathy from the Lovenox. -- distal lower leg DVT carries a very low risk for pulmonary embolism. Given his significant history of hematoma in the left thigh last week and hematuria after the Malik catheter placed and the Lovenox was given, recommendation is to hold off on any anticoagulation at this time. (2) History of open reduction and internal fixation (ORIF) procedure ICD Codes: Z98.890 - Other specified postprocedural states Status: Acute Plan: --History of open reduction internal fixation for left femur fracture which was complicated postoperatively with significant hematoma which required evacuation. (3) CAD (coronary artery disease) ICD Codes: I25.10 - Atherosclerotic heart disease of [place] coronary artery without angina pectoris Status: Chronic Plan: --s/p stent placement --on Plavix Assessment 86y/o male with left distal DVT + hematuria while on Lovenox. h/o Coronary artery disease. Arthritis. Problem Qualifiers (1) Deep vein thrombosis (DVT) of left lower extremity: Pb Charlton MD Mar 25, 2017 14:27
== END 2017-03-25 13:50 | DRG 300 ==
LOC: N03A 23:29 → N07B 03-22 13:45
PROVIDERS: ADMIT Family Medicine; ATTEND Family Medicine
DX: I71.4 Abdominal aortic aneurysm, without rupture (principal); D62 Acute posthemorrhagic anemia; I95.9 Hypotension, unspecified; D69.6 Thrombocytopenia, unspecified; I82.492 Acute embolism and thrombosis of other specified deep vein of left lower extremity; R31.9 Hematuria, unspecified; T83.83XA Hemorrhage due to genitourinary prosthetic devices, implants and grafts, initial encounter; M88.9 Osteitis deformans of unspecified bone; I10 Essential (primary) hypertension; I25.10 Atherosclerotic heart disease of native coronary artery without angina pectoris; E78.5 Hyperlipidemia, unspecified; N40.1 Benign prostatic hyperplasia with lower urinary tract symptoms; R39.12 Poor urinary stream; R35.1 Nocturia; R33.8 Other retention of urine; N50.89 Other specified disorders of the male genital organs; R26.9 Unspecified abnormalities of gait and mobility; M79.652 Pain in left thigh; M19.90 Unspecified osteoarthritis, unspecified site; N48.89 Other specified disorders of penis; Y84.6 Urinary catheterization as the cause of abnormal reaction of the patient, or of later complication, without mention of misadventure at the time of the procedure; Z95.5 Presence of coronary angioplasty implant and graft; I25.2 Old myocardial infarction
CPT/HCPCS: 71045; 71275; 74174; 80048; 80053; 83605; 83735; 84100; 85025; 85027; 85610; 85730; 86850; 86900; 86901; 86920; 87641; 93005; 93306; 93971; J1940; J7030; J7040; Q9967